=== PATIENT | female | born 1995 | race Caucasian/White ===

== ENCOUNTER → 2020-02-23 17:07 | Outpatient (CLI) | payer OTHER, SELFPAY ==
--- NOTE | 2020-02-23 17:11 | DI.US.S_ITS ---
PROCEDURE: US OB FOLLOW UP INDICATIONS: Follow up Anatomy Face please : not fully visualized OUTSIDE/PRIOR DATING DATA: Last menstrual period (LMP): 09/12/2019. LMP-based estimated date of delivery (LILIANE): 06/17/2020. First dating scan (date and location): 01/25/2020. Estimated date of delivery (LILIANE) from first dating scan: 06/18/2020. TECHNIQUE: Real-time scanning was performed of the fetus, with image documentation. Endovaginal scanning: Not performed COMPARISON: [facility], , US OB DETAILED EVAL, 01/25/2020, 8:06. FINDINGS: A single living intrauterine gestation is present. Presentation: Cephalic Placenta: Placental position is anterior, without previa. Amniotic fluid index: 14.5 cm, normal range is 5-24 cm. heart rate: 136 beats per minute. Maternal cervical canal: 4.1 cm long. Normal lower limit is 2.5 cm. Estimated gestational age from initial scan: 23 weeks, 3 days.. facial profile is visualized. nose and lips are visualized and are within normal limits. IMPRESSION: Single live intrauterine with fetus in cephalic presentation. heart rate is 136 beats per minute. Normal amount of amniotic fluid. Normal cervical length. facial profile/nose and lips are visualized and are within normal limits. Dictated by: Michele Park M.D. on 02/23/2020 at 18:31 Approved by: Michele Park M.D. on 02/23/2020 at 19:07
== END ==
PROVIDERS: PCP Family Medicine; Referring Provider Family Medicine; Visit Provider Family Medicine
DX: Z36.2 Encounter for other antenatal screening follow-up (principal); Z3A.23 23 weeks gestation of pregnancy
CPT/HCPCS: 76816

== ENCOUNTER → 2020-02-26 14:35 | Outpatient (CLI) | payer OTHER, SELFPAY ==
[2020-02-26 16:21] LABS: TSH w/ Reflex to FT4 1.54 uIU/mL (0.47-4.68)
[2020-02-26 16:38] LABS: HIV 1 & 2 Ab/Ag 4th Gen Combo NEGATIVE (NEGATIVE)
== END ==
PROVIDERS: PCP Family Medicine; Referring Provider Family Medicine; Visit Provider Family Medicine
DX: E03.9 Hypothyroidism, unspecified (principal); Z20.6 Contact with and (suspected) exposure to human immunodeficiency virus [HIV]; Z3A.26 26 weeks gestation of pregnancy
CPT/HCPCS: 36415; 84443; 87389

== ENCOUNTER 2020-03-09 15:15 | Outpatient (CLI) | payer OTHER, SELFPAY ==
--- NOTE | 2020-03-09 16:13 | PM.OBTRLD ---
Visit Information Visit Information Date of evaluation: 03/09/20 Primary OB Provider: Elsy Mcmahon On-call OB Provider: Elsy Mcmahon Reason for Evaluation: Yes non-stress test non-stress test reason: other (Bleeding with wiping) Comments/Additional reasons for admission: Patient comes in due to pink discharge with wiping though not bryce blood. She has also been feeling crampy all day. Denies fevers or pain with urination. She has had good movement and denies leaking. Vital Signs Vital Signs: Blood pressure 110/61 heart rate 63 PFSH Medical History Abnormal Pap smear of cervix (Acute ~2019) Allergies (Chronic ~2014) Bacterial vaginosis (Acute) Hypothyroidism (Chronic ~2018) Yeast infection involving the vagina and surrounding area (Acute) Surgical History Anesthesia (Resolved) [place] teeth removed (Resolved ~2018) Family History Father History of amputation Neuropathy Diabetes mellitus Mother Hypothyroidism Diabetes mellitus Hypertension Sister Hypothyroidism Grandfather Congestive heart failure Diabetes mellitus History of heart disease Hyperlipidemia Hypertension Grandmother Arthritis Grandmother No problems noted. Grandfather No problems noted. Social History marital status: number of children: 0 household members: spouse lives independently: Yes caregiver/support person: No housing: apartment education level: high school occupational status: employed ([employer] in [employer], starts at 11am.) current occupational exposures/hazards: Yes Smoking Status: Never smoker second hand exposure: No Type(s) of exercise: walking and weight lifting (Normally competitive weightlifter; Previous provider recommended avoiding exercises with too much core pressure.) frequency: 5-6 times per week Evaluation Evaluation Baseline heart rate: 130 Variability: Moderate (11-25) monitor accelerations: Present monitor decelerations: Absent Category of Tracing: Reactive Diagnosis, Plan/Disposition Final Diagnosis (1) 26 weeks gestation of : Status: Acute Plan/Disposition Plan: 25 year old at 26 weeks gestation with reports of pink discharge at home and cramping for several hours. NST reactive and one contraction during the hour she was on the monitor. UA normal. Patient given reassurance. Follow up if bryce bleeding or contractions, otherwise return to clinic as scheduled. OB Disposition: home
[2020-03-09 16:34] LABS: Appearance Urine UA SL CLOUDY; Bacteria Urine None Seen; Bilirubin Urine UA NEGATIVE (NEGATIVE); Color Urine UA YELLOW; Glucose Urine UA NEGATIVE (Negative); Ketones Urine UA NEGATIVE (NEGATIVE); Leukocyte Esterase Urine UA NEGATIVE (NEGATIVE); Nitrite Urine UA NEGATIVE (Negative); Occult Blood Urine UA NEGATIVE (Negative); Protein Urine UA NEGATIVE (Negative); RBC Urine None Seen (0-5/HPF); Urobilinogen Urine UA 0.2 E.U./dL (0.2)
[2020-03-09 16:49] LABS: pH Urine UA 7.5 (4.5-8.0)
[2020-03-09 16:50] LABS: Amorphous Sediment Urine 3+; Culture Indicated Urine Cult Not Indicated; Squamous Epithelial Cell Urine 0-1 /HPF (0-5/HPF); WBC Urine 0-1/HPF (0-5/HPF)
== END 2020-03-09 17:00 | disposition home or self-care (01) ==
LOC: OB 03-10 14:56
PROVIDERS: PCP Family Medicine; Referring Provider Family Medicine; Visit Provider Family Medicine
DX: O20.9 Hemorrhage in early pregnancy, unspecified (principal); R10.9 Unspecified abdominal pain; Z3A.26 26 weeks gestation of pregnancy
CPT/HCPCS: 59025; 81001; G0378; G0379

== ENCOUNTER 2020-03-12 18:03 | Observation (INO) | payer OTHER, SELFPAY ==
[2020-03-12 18:50] LABS: Appearance Urine UA CLEAR; Bilirubin Urine UA NEGATIVE (NEGATIVE); Color Urine UA YELLOW; Glucose Urine UA NEGATIVE (Negative); Ketones Urine UA NEGATIVE (NEGATIVE); Leukocyte Esterase Urine UA NEGATIVE (NEGATIVE); Nitrite Urine UA NEGATIVE (Negative); Occult Blood Urine UA NEGATIVE (Negative); Protein Urine UA NEGATIVE (Negative); Urobilinogen Urine UA 0.2 E.U./dL (0.2); pH Urine UA 5.5 (4.5-8.0)
[2020-03-12 19:16] LABS: Bacteria Urine Occasional (0-1); Culture Indicated Urine Cult Not Indicated; RBC Urine 0-1/HPF (0-5/HPF); Squamous Epithelial Cell Urine 1-5 /HPF (0-5/HPF); WBC Urine 0-1/HPF (0-5/HPF)
[2020-03-12 19:32] LABS: Add Manual Diff / Slide Review NO; Basophils Absolute Auto 0 /uL (0-100); Basophils Percent Auto 0.6 % (0-2); Eosinophils Absolute Auto 100 /uL (0-450); Hematocrit 34.3 % (36-46); Lymphocytes Absolute Auto 1300 /uL (1100-4500); Lymphocytes Percent Auto 20.2 % (25-40); Mean Corpuscular HGB Conc 34.9 % (30-36); Mean Corpuscular Hemoglobin 32.2 PG (26-34); Mean Corpuscular Volume 92.2 fL (80-100); Monocytes Absolute Auto 400 /uL (0-900); Monocytes Percent Auto 5.6 % (3-14); Neutrophils Absolute Auto 4800 /uL (1500-7000); Neutrophils Percent Auto 72.6 % (50-75); Platelet Count 179 X10^3/uL (150-400); Red Blood Cell Count 3.72 X10^6/uL (4.0-5.2); Red Cell Distribution Width 12.6 % (11.6-14.8); White Blood Cell Count 6.7 X10^3/uL (4.5-11.0)
[2020-03-12 19:47] LABS: Alanine Aminotransferase 14 IU/L (<35); Albumin 3.5 g/dL (3.5-5.0); Albumin Globulin Ratio 1.2 (1.0-2.8); Alkaline Phosphatase 50 U/L (38-126); Aspartate Aminotransferase 29 IU/L (14-36); Bilirubin Total 0.4 mg/dL (0.2-1.3); Bilirubin Unconjugated 0.4 mg/dL (0.0-1.1); Globulin 2.9 g/dL (1.7-4.1); HEMOLYSIS < 15 (0-50); Total Protein 6.4 g/dL (6.3-8.2)
--- NOTE | 2020-03-12 20:01 | PM.OBTRLD ---
Visit Information Visit Information Date of evaluation: 03/12/20 Primary OB Provider: Elsy Mcmahon On-call OB Provider: Janis Whitten Reason for Evaluation: Yes other Comments/Additional reasons for admission: Headache, epigastric pain, rectal bleeding [facility] Medical History (Updated 03/12/20 @ 21:32 by Janis Whitten MD) Abnormal Pap smear of cervix (Acute ~2019) Allergies (Chronic ~2014) Bacterial vaginosis (Acute) Hypothyroidism (Chronic ~2018) Yeast infection involving the vagina and surrounding area (Acute) Surgical History Anesthesia (Resolved) [place] teeth removed (Resolved ~2018) Family History Father History of amputation Neuropathy Diabetes mellitus Mother Hypothyroidism Diabetes mellitus Hypertension Sister Hypothyroidism Grandfather Congestive heart failure Diabetes mellitus History of heart disease Hyperlipidemia Hypertension Grandmother Arthritis Grandmother No problems noted. Grandfather No problems noted. Social History marital status: number of children: 0 household members: spouse lives independently: Yes caregiver/support person: No housing: apartment education level: high school occupational status: employed ([employer] in [place], starts at 11am.) current occupational exposures/hazards: Yes Smoking Status: Never smoker second hand exposure: No Type(s) of exercise: walking and weight lifting (Normally competitive weightlifter; Previous provider recommended avoiding exercises with too much core pressure.) frequency: 5-6 times per week Review of Systems Review of Systems Narrative: Patient complains of a headache mostly on the right side that started earlier this week. She initially would have the pain go from the side of her head across her forehead increasing over the day. She initially did not have pain when she woke up in the morning but now the pain is present when she wakes up and gets worse throughout the day. She tried taking Benadryl last night to get a good night's sleep but actually felt worse today. Patient is complaining of some possible visual changes, dizziness with standing, and now has ringing in her right ear. Patient also complained of right upper quadrant pain and pain in her back/flank. She did have a fairly firm bowel movement with no pain but had bright red bleeding with that bowel movement. No bleeding since. Patient states her right upper quadrant pain is better now. Patient denies any fevers. No nasal congestion. Patient is concerned because her mother had preeclampsia with all of her pregnancies. Exam Vital Signs (past 8 hours): Blood pressure 126/65, pulse 76, temperature 98? Narrative Exam Narrative: Attempt to look in the patient's right ear was somewhat limited due to the wax in the patient's ear but what little I could see of her eardrum did not appear to show signs of infection. She has some tenderness anterior to her ear but not posterior. No tenderness to her sinuses. The patient's abdomen is soft, nontender. Uterus is soft, nontender. Extremities without edema and nontender. Objective Labs Result Diagrams: 03/12/20 19:22 Labs: Laboratory Results - last 24 hr 03/12/20 03/12/20 18:05 19:22 WBC 6.7 RBC 3.72 L Hgb 12.0 Hct 34.3 L MCV 92.2 MCH 32.2 MCHC 34.9 RDW 12.6 Plt Count 179 Neut % (Auto) 72.6 Lymph % (Auto) 20.2 L [place] % (Auto) 5.6 Eos % (Auto) 1.0 L Baso % (Auto) 0.6 Neut # (Auto) 4800 Lymph # (Auto) 1300 [place] # (Auto) 400 Eos # (Auto) 100 Baso # (Auto) 0 Urine Color Yellow Urine Appearance Clear Urine pH 5.5 Ur Specific [place] 1.020 Urine Protein Negative Urine Glucose (UA) Negative Urine Ketones Negative Urine Occult Blood Negative Urine Nitrate Negative Urine Bilirubin Negative Urine Urobilinogen 0.2 Ur Leukocyte Esterase Negative Urine RBC 0-1/hpf Urine WBC 0-1/hpf Ur Squamous Epith Cells 1-5 /hpf Urine Bacteria Occasional (0-1) Ur Culture Indicated? Cult not indicated Evaluation Evaluation Baseline heart rate: 140 Variability: Moderate (11-25) monitor accelerations: Present monitor decelerations: Absent Contraction Frequency (minutes): 0 Category of Tracing: Appropriate for gestational age Laboratory results: Laboratory Tests 03/12/20 03/12/20 18:05 19:22 WBC 6.7 RBC 3.72 L Hgb 12.0 Hct 34.3 L MCV 92.2 MCH 32.2 MCHC 34.9 RDW 12.6 Plt Count 179 Neut % (Auto) 72.6 Lymph % (Auto) 20.2 L [place] % (Auto) 5.6 Eos % (Auto) 1.0 L Baso % (Auto) 0.6 Neut # (Auto) 4800 Lymph # (Auto) 1300 [place] # (Auto) 400 Eos # (Auto) 100 Baso # (Auto) 0 Urine Color Yellow Urine Appearance Clear Urine pH 5.5 Ur Specific [place] 1.020 Urine Protein Negative Urine Glucose (UA) Negative Urine Ketones Negative Urine Occult Blood Negative Urine Nitrate Negative Urine Bilirubin Negative Urine Urobilinogen 0.2 Ur Leukocyte Esterase Negative Urine RBC 0-1/hpf Urine WBC 0-1/hpf Ur Squamous Epith Cells 1-5 /hpf Urine Bacteria Occasional (0-1) Ur Culture Indicated? Cult not indicated Diagnosis, Plan/Disposition Final Diagnosis (1) 26 weeks gestation of : Status: Acute (2) Headache: Status: Acute Plan/Disposition Plan: Patient with headache of unclear etiology but no signs or symptoms of preeclampsia. Patient was given 1 dose of Fiorcet prior to discharge. She is to push fluids. She can take Benadryl at night and Sudafed during the day to see if her symptoms are due to ear/sinus pressure. If her symptoms worsen or change she is to call. Follow up with her Ob Sunday. OB Disposition: home
[2020-03-12] MEDS: BUTALB/APAP/CAFFEINE 50/325/40 TABLET 1 EACH PO (20:10)
== END 2020-03-12 20:30 | disposition home or self-care (01) ==
LOC: LABOR 18:05
PROVIDERS: Admitting Provider Specialist; PCP Family Medicine; Referring Provider Specialist; Visit Provider Specialist
DX: O26.892 Other specified pregnancy related conditions, second trimester (principal); R51.9 Headache, unspecified; R10.13 Epigastric pain; K92.1 Melena; Z3A.26 26 weeks gestation of pregnancy
CPT/HCPCS: 59025; 59050; 80076; 81001; 85025; G0378; G0379

== ENCOUNTER → 2020-03-22 10:00 | Outpatient (CLI) | payer OTHER, SELFPAY ==
[2020-03-22 11:30] LABS: Hematocrit 35.4 % (36-46); Hemoglobin 12.4 g/dL (12.0-16.0)
[2020-03-22 11:47] LABS: GTT (PREG) 1 Hour PP 50gm Dose 87 mg/dL (76-139)
== END ==
PROVIDERS: PCP Family Medicine; Referring Provider Family Medicine; Visit Provider Family Medicine
DX: Z34.90 Encounter for supervision of normal pregnancy, unspecified, unspecified trimester (principal); Z3A.26 26 weeks gestation of pregnancy
CPT/HCPCS: 36415; 82950; 85014; 85018

== ENCOUNTER 2020-04-04 21:57 | Outpatient (CLI) | payer OTHER, SELFPAY | END 2020-04-04 22:50 | disposition home or self-care (01) | LOC: OB 04-05 12:02 | PROVIDERS: PCP Family Medicine; Referring Provider Obstetrics & Gynecology; Visit Provider Obstetrics & Gynecology | DX: O47.03 False labor before 37 completed weeks of gestation, third trimester (principal); N89.8 Other specified noninflammatory disorders of vagina; Z3A.29 29 weeks gestation of pregnancy | CPT/HCPCS: 59025; 84112; G0378; G0379 ==

== ENCOUNTER 2020-04-28 19:16 | Observation (INO) | payer OTHER, SELFPAY ==
[2020-04-28 19:59] LABS: Appearance Urine UA CLEAR; Bilirubin Urine UA NEGATIVE (NEGATIVE); Color Urine UA YELLOW; Glucose Urine UA NEGATIVE (Negative); Ketones Urine UA NEGATIVE (NEGATIVE); Leukocyte Esterase Urine UA NEGATIVE (NEGATIVE); Nitrite Urine UA NEGATIVE (Negative); Occult Blood Urine UA NEGATIVE (Negative); Protein Urine UA NEGATIVE (Negative); Specific Gravity Urine UA 1.025 (1.000-1.035); Urobilinogen Urine UA 0.2 E.U./dL (0.2)
[2020-04-28] MEDS: NIFEdipine 10 MG CAPSULE PO ×4 (19:59→21:07)
[2020-04-28 20:00] LABS: pH Urine UA 5.5 (4.5-8.0)
--- NOTE | 2020-04-28 20:27 | PM.OBTRLD ---
Visit Information Visit Information Date of evaluation: 04/28/20 Primary OB Provider: Janis Whitten Reason for Evaluation: Yes pre-term labor Vital Signs Vital Signs: BP 130/58, P 75 ,T 36.3 [facility] Medical History (Updated 04/30/20 @ 20:26 by Ananya Mahajan MD) Abnormal Pap smear of cervix (~2019) Allergies (~2014) Bacterial vaginosis Hypothyroidism (~2018) Yeast infection involving the vagina and surrounding area Surgical History Anesthesia [place] teeth removed (~2018) Family History Father History of amputation Neuropathy Diabetes mellitus Mother Hypothyroidism Diabetes mellitus Hypertension Sister Hypothyroidism Grandfather Congestive heart failure Diabetes mellitus History of heart disease Hyperlipidemia Hypertension Grandmother Arthritis Grandmother No problems noted. Grandfather No problems noted. Social History marital status: number of children: 0 household members: spouse lives independently: Yes caregiver/support person: No housing: apartment education level: high school occupational status: employed ([employer] in [employer], starts at 11am.) current occupational exposures/hazards: Yes Smoking Status: Never smoker second hand exposure: No Type(s) of exercise: walking and weight lifting (Normally competitive weightlifter; Previous provider recommended avoiding exercises with too much core pressure.) frequency: 5-6 times per week Review of Systems Review of Systems Narrative: Patient complains of period like cramps all day that did not respond to resting and drinking fluids. Sometimes the pain is much more intense than cramps. Those increased pain are not regular. ROS: Yes All systems reviewed with the patient and are negative except as otherwise documented Objective Labs Labs: Laboratory Results - last 24 hr 04/28/20 19:30 Urine Color Yellow Urine Appearance Clear Urine pH 5.5 Ur Specific [place] 1.025 Urine Protein Negative Urine Glucose (UA) Negative Urine Ketones Negative Urine Occult Blood Negative Urine Nitrate Negative Urine Bilirubin Negative Urine Urobilinogen 0.2 Ur Leukocyte Esterase Negative Evaluation Evaluation Baseline heart rate: 125 Variability: Moderate (11-25) monitor accelerations: Present monitor decelerations: Absent Laboratory results: Laboratory Tests 11/25/20 19:30 Urine Color Yellow Urine Appearance Clear Urine pH 5.5 Ur Specific [place] 1.025 Urine Protein Negative Urine Glucose (UA) Negative Urine Ketones Negative Urine Occult Blood Negative Urine Nitrate Negative Urine Bilirubin Negative Urine Urobilinogen 0.2 Ur Leukocyte Esterase Negative Comments: Patient received nifedipine 3 doses in her cramps went away. There were never significant contractions on the monitor or by palpation Diagnosis, Plan/Disposition Final Diagnosis (1) Pelvic cramping: Status: Acute Plan/Disposition Plan: Patient with cramping that since has resolved after nifedipine. Patient was discharged home to push fluids and rest and follow up at her normal OB appointment. OB Disposition: home
== END 2020-04-28 21:30 | disposition home or self-care (01) ==
LOC: LABOR 19:17
PROVIDERS: Specialist; Admitting Provider Family Medicine; PCP Family Medicine; Referring Provider Family Medicine; Visit Provider Family Medicine
DX: O47.03 False labor before 37 completed weeks of gestation, third trimester (principal); Z3A.33 33 weeks gestation of pregnancy
CPT/HCPCS: 59025; 59050; 81003; G0378; G0379

== ENCOUNTER 2020-04-30 14:20 | Outpatient (CLI) | payer OTHER, SELFPAY ==
[2020-04-30 14:38] LABS: Appearance Urine UA CLEAR; Bilirubin Urine UA NEGATIVE (NEGATIVE); Color Urine UA YELLOW; Glucose Urine UA NEGATIVE (Negative); Ketones Urine UA NEGATIVE (NEGATIVE); Leukocyte Esterase Urine UA NEGATIVE (NEGATIVE); Nitrite Urine UA NEGATIVE (Negative); Occult Blood Urine UA NEGATIVE (Negative); Protein Urine UA NEGATIVE (Negative); Urobilinogen Urine UA 0.2 E.U./dL (0.2)
[2020-04-30 14:40] LABS: pH Urine UA 6.5 (4.5-8.0)
--- NOTE | 2020-04-30 15:29 | PM.OBTRLD ---
Visit Information Visit Information Date of evaluation: 04/30/20 Primary OB Provider: Elsy Mcmahon On-call OB Provider: Ananya Mahajan Reason for Evaluation: Yes rule out labor Comments/Additional reasons for admission: 25yo at 33w3d presented with regular cramping throughout the day. She was evaluated on 04/28 for the same, and discharged home without evidence of labor. She feels the cramping has gotten stronger, although she does not feel they are contractions. No vaginal bleeding or LOF. She is feeling baby move regularly. [facility] Medical History (Updated 04/30/20 @ 20:26 by Ananya Mahajan MD) Abnormal Pap smear of cervix (~2019) Allergies (~2014) Bacterial vaginosis Hypothyroidism (~2018) Yeast infection involving the vagina and surrounding area Surgical History Anesthesia [place] teeth removed (~2018) Family History Father History of amputation Neuropathy Diabetes mellitus Mother Hypothyroidism Diabetes mellitus Hypertension Sister Hypothyroidism Grandfather Congestive heart failure Diabetes mellitus History of heart disease Hyperlipidemia Hypertension Grandmother Arthritis Grandmother No problems noted. Grandfather No problems noted. Social History marital status: number of children: 0 household members: spouse lives independently: Yes caregiver/support person: No housing: apartment education level: high school occupational status: employed ([employer] in [place], starts at 11am.) current occupational exposures/hazards: Yes Smoking Status: Never smoker second hand exposure: No Type(s) of exercise: walking and weight lifting (Normally competitive weightlifter; Previous provider recommended avoiding exercises with too much core pressure.) frequency: 5-6 times per week Objective Labs Labs: Laboratory Results - last 24 hr 04/30/20 14:30 Urine Color Yellow Urine Appearance Clear Urine pH 6.5 Ur Specific [place] 1.020 Urine Protein Negative Urine Glucose (UA) Negative Urine Ketones Negative Urine Occult Blood Negative Urine Nitrate Negative Urine Bilirubin Negative Urine Urobilinogen 0.2 Ur Leukocyte Esterase Negative Evaluation Evaluation Baseline heart rate: 125 Variability: Moderate (11-25) monitor accelerations: Present monitor decelerations: Absent Category of Tracing: Reactive Laboratory results: Laboratory Tests 04/30/20 14:30 Urine Color Yellow Urine Appearance Clear Urine pH 6.5 Ur Specific [place] 1.020 Urine Protein Negative Urine Glucose (UA) Negative Urine Ketones Negative Urine Occult Blood Negative Urine Nitrate Negative Urine Bilirubin Negative Urine Urobilinogen 0.2 Ur Leukocyte Esterase Negative Diagnosis, Plan/Disposition Final Diagnosis (1) Pelvic cramping: Status: Acute (2) Bacterial vaginosis: Status: Acute Plan/Disposition Plan: 25yo at 33w3d who presented with regular pelvic cramping. No contractions with monitoring. NST reactive. Wet prep consistent with BV - will tx with Metronidazole today. Stable for d/c home. OB Disposition: home
== END 2020-04-30 15:25 | disposition home or self-care (01) ==
LOC: LABOR 14:29 → OB 05-03 07:42
PROVIDERS: PCP Family Medicine; Referring Provider Family Medicine; Visit Provider Family Medicine
DX: O47.03 False labor before 37 completed weeks of gestation, third trimester (principal); O23.593 Infection of other part of genital tract in pregnancy, third trimester; Z3A.33 33 weeks gestation of pregnancy
CPT/HCPCS: 59025; 81003; 87070; 87077; 87147; 87205; 87210; G0378; G0379

== ENCOUNTER 2020-05-08 18:15 | Outpatient (CLI) | payer OTHER, SELFPAY | END 2020-05-08 19:04 | disposition home or self-care (01) | LOC: OB 05-10 10:36 | PROVIDERS: PCP Family Medicine; Referring Provider Obstetrics & Gynecology; Visit Provider Obstetrics & Gynecology | DX: O47.03 False labor before 37 completed weeks of gestation, third trimester (principal); Z3A.34 34 weeks gestation of pregnancy | CPT/HCPCS: 59025; G0378; G0379 ==

== ENCOUNTER 2020-05-11 10:52 | Outpatient (CLI) | payer OTHER, SELFPAY ==
[2020-05-11 12:20] LABS: Amorphous Sediment Urine 1+; RBC Urine None Seen (0-5/HPF); Squamous Epithelial Cell Urine 1-5 /HPF (0-5/HPF); WBC Urine 0-1/HPF (0-5/HPF)
[2020-05-11 12:21] LABS: Bacteria Urine Occasional (0-1); Culture Indicated Urine Cult Not Indicated
--- NOTE | 2020-05-11 12:28 | PM.OBTRLD ---
Visit Information Visit Information Date of evaluation: 05/11/20 Primary OB Provider: Elys Mcmahon Reason for Evaluation: Yes rule out labor Comments/Additional reasons for admission: Patient has been feeling pressure since last night and reports contractions lasting up to 45 seconds every 15 minutes since this morning. She passed a very tiny clot yesterday and has not had further bleeding. Good movement, no loss of fluid. Vital Signs Vital Signs: Blood pressure 118/67 heart rate 96 PFSH Medical History (Updated 05/11/20 @ 12:30 by Elsy Mcmahon DO) Abnormal Pap smear of cervix (~2019) Allergies (~2014) Bacterial vaginosis Hypothyroidism (~2018) Yeast infection involving the vagina and surrounding area Surgical History Anesthesia [place] teeth removed (~2018) Family History Father History of amputation Neuropathy Diabetes mellitus Mother Hypothyroidism Diabetes mellitus Hypertension Sister Hypothyroidism Grandfather Congestive heart failure Diabetes mellitus History of heart disease Hyperlipidemia Hypertension Grandmother Arthritis Grandmother No problems noted. Grandfather No problems noted. Social History marital status: number of children: 0 household members: spouse lives independently: Yes caregiver/support person: No housing: apartment education level: high school occupational status: employed ([employer] in [place], starts at 11am.) current occupational exposures/hazards: Yes Smoking Status: Never smoker second hand exposure: No Type(s) of exercise: walking and weight lifting (Normally competitive weightlifter; Previous provider recommended avoiding exercises with too much core pressure.) frequency: 5-6 times per week Objective Labs Labs: Laboratory Results - last 24 hr 05/11/20 11:20 Urine RBC None seen Urine WBC 0-1/hpf Ur Squamous Epith Cells 1-5 /hpf Amorphous Sediment 1+ Urine Bacteria Occasional (0-1) Ur Culture Indicated? Cult not indicated Evaluation Evaluation Baseline heart rate: 120 Variability: Moderate (11-25) monitor accelerations: Present monitor decelerations: Variable (One isolated variable) Category of Tracing: Reactive Laboratory results: Laboratory Tests 05/11/20 11:20 Urine RBC None seen Urine WBC 0-1/hpf Ur Squamous Epith Cells 1-5 /hpf Amorphous Sediment 1+ Urine Bacteria Occasional (0-1) Ur Culture Indicated? Cult not indicated Diagnosis, Plan/Disposition Final Diagnosis (1) 35 weeks gestation of : Status: Acute Plan/Disposition Plan: 25-year-old at 35 weeks gestation. No contractions noted on the monitor though some uterine irritability. NST reactive. Will discharge home with labor precautions. Follow-up in clinic as scheduled. OB Disposition: home
== END 2020-05-11 12:32 | disposition home or self-care (01) ==
LOC: LABOR 12:15 → OB 05-12 16:48
PROVIDERS: PCP Family Medicine; Referring Provider Family Medicine; Visit Provider Family Medicine
DX: O47.03 False labor before 37 completed weeks of gestation, third trimester (principal); Z3A.35 35 weeks gestation of pregnancy
CPT/HCPCS: 59025; 59050; 81015; G0378; G0379

== ENCOUNTER → 2020-05-12 09:14 | Outpatient (CLI) | payer OTHER, SELFPAY ==
--- NOTE | 2020-05-12 09:16 | DI.US.S_ITS ---
PROCEDURE: US OB LIMITED INDICATIONS: GROWTH. SMALL FOR GESTATIONAL AGE. OUTSIDE/PRIOR DATING DATA: Last menstrual period (LMP): 09/07/2019. LMP-based estimated date of delivery (LILIANE): 06/15/2020 . First dating scan (date and location): 11/11/2019 . Estimated date of delivery (LILIANE) from first dating scan: 06/16/2020 . TECHNIQUE: Real-time scanning was performed of the fetus, with image documentation and biometric measurements. Endovaginal scanning: No COMPARISON: None. FINDINGS: General: A single living intrauterine gestation is present. Presentation: Vertex. Placenta: Placental position is anterior , without previa. Amniotic fluid index: 14.5 cm, normal range is 5-24 cm. heart rate: 162 beats per minute. Maternal cervical canal: 3.9 cm long. Normal lower limit is 2.5 cm. biometrics: Biparietal diameter: 34 weeks 4 days Head circumference: 34 weeks 4 days Abdominal circumference: 34 weeks 3 days Femur length: 34 weeks 3 days Estimated gestational age from initial scan: 35 weeks Composite gestational age from present scan: 34 weeks 4 days Estimated weight and percentile: 2426 g; 33 centile Measurement variability for biometric dating: +/- 7 days from 14 weeks to 15 weeks 6 days gestation, +/- 10 days from 16 weeks to 21 weeks 6 days gestation, +/- 2 weeks from 22 weeks to 27 weeks 6 days gestation, +/- 3 weeks for 28 weeks gestation or later. weight reference: 4500 g or EFW >90/95% is considered macrosomia or large for gestational age. EFW <10% is small for gestational age. EFW 5% or less is considered intra-uterine growth restriction. Other: Not applicable. IMPRESSION: 1. Single living IUP redemonstrated and interval growth is normal. Dictated by: Poncho Burns [facility] Interpreted: Miriam Alford MD on 05/12/2020 at 12:08 Approved by: Miriam Alford M.D. on 05/12/2020 at 16:54
[2020-05-12 10:40] LABS: TSH w/ Reflex to FT4 1.28 uIU/mL (0.47-4.68)
[2020-05-13 16:59] LABS: HIV 1 & 2 Ab/Ag 4th Gen Combo NEGATIVE (NEGATIVE)
== END ==
PROVIDERS: PCP Family Medicine; Referring Provider Family Medicine; Visit Provider Family Medicine
DX: O36.5930 Maternal care for other known or suspected poor fetal growth, third trimester, not applicable or unspecified (principal); O99.283 Endocrine, nutritional and metabolic diseases complicating pregnancy, third trimester; E03.9 Hypothyroidism, unspecified; Z20.6 Contact with and (suspected) exposure to human immunodeficiency virus [HIV]; Z3A.34 34 weeks gestation of pregnancy
CPT/HCPCS: 36415; 76815; 84443; 87389

== ENCOUNTER → 2020-05-21 14:27 | Outpatient (CLI) | payer OTHER, SELFPAY ==
[2020-05-22 15:01] LABS: Strep Grp B PCR POS for Grp B Strep
== END ==
PROVIDERS: PCP Family Medicine; Visit Provider Family Medicine
DX: Z34.03 Encounter for supervision of normal first pregnancy, third trimester (principal); N76.0 Acute vaginitis; Z3A.36 36 weeks gestation of pregnancy
CPT/HCPCS: 87081; 87186; 87210; 87653

== ENCOUNTER 2020-06-04 19:08 | Observation (INO) | payer OTHER, SELFPAY | END 2020-06-04 21:35 | disposition home or self-care (01) | LOC: LABOR 19:10 | PROVIDERS: Admitting Provider Obstetrics & Gynecology; PCP Family Medicine; Referring Provider Obstetrics & Gynecology; Visit Provider Obstetrics & Gynecology | DX: O99.283 Endocrine, nutritional and metabolic diseases complicating pregnancy, third trimester (principal); Z3A.38 38 weeks gestation of pregnancy | CPT/HCPCS: 59025; G0378; G0379 ==

== ENCOUNTER 2020-06-06 20:02 | Outpatient (CLI) | payer OTHER, SELFPAY ==
--- NOTE | 2020-06-07 07:53 | PM.OBTRLD ---
Visit Information Visit Information Date of evaluation: 06/06/20 Primary OB Provider: Elsy Mcmahon On-call OB Provider: Janis Whitten Reason for Evaluation: Yes non-stress test non-stress test reason: decreased movement Vital Signs Vital Signs: Blood pressure 132/84, pulse 68, temperature 36.2? [facility] Medical History (Updated 06/07/20 @ 07:56 by Janis Whitten MD) Abnormal Pap smear of cervix (~2019) Allergies (~2014) Bacterial vaginosis Hypothyroidism (~2018) Yeast infection involving the vagina and surrounding area Surgical History Anesthesia [place] teeth removed (~2018) Family History Father History of amputation Neuropathy Diabetes mellitus Mother Hypothyroidism Diabetes mellitus Hypertension Sister Hypothyroidism Grandfather Congestive heart failure Diabetes mellitus History of heart disease Hyperlipidemia Hypertension Grandmother Arthritis Grandmother No problems noted. Grandfather No problems noted. Social History marital status: number of children: 0 household members: spouse lives independently: Yes caregiver/support person: No housing: apartment education level: high school occupational status: employed ([employer] in [place], starts at 11am.) current occupational exposures/hazards: Yes Smoking Status: Never smoker second hand exposure: No Type(s) of exercise: walking and weight lifting (Normally competitive weightlifter; Previous provider recommended avoiding exercises with too much core pressure.) frequency: 5-6 times per week Review of Systems Review of Systems Narrative: Patient complains of contractions however they stop when she arrived to the hospital. She was concerned about decreased movement and possible rupture membranes. Evaluation Evaluation Baseline heart rate: 130 Variability: Moderate (11-25) monitor accelerations: Present monitor decelerations: Absent Contraction Frequency (minutes): 0 Category of Tracing: Reactive Status: Category l Cervical dilation (cm): 0 Cervical effacement (%): 75 station: -2 Non-invasive Membranes Rupture Test: negative Diagnosis, Plan/Disposition Final Diagnosis (1) False labor: Status: Acute (2) 38 weeks gestation of : Status: Acute Plan/Disposition Plan: Patient not in labor and has not broken her bag of water with reactive nonstress test OB Disposition: home
== END 2020-06-06 21:15 | disposition home or self-care (01) ==
LOC: LABOR 20:14 → OB 06-07 15:16
PROVIDERS: PCP Family Medicine; Referring Provider Specialist; Visit Provider Specialist
DX: O36.8130 Decreased fetal movements, third trimester, not applicable or unspecified (principal); Z3A.38 38 weeks gestation of pregnancy
CPT/HCPCS: 59025; 59050; 84112; G0378; G0379

== ENCOUNTER 2020-06-09 18:19 | Observation (INO) | payer OTHER, SELFPAY ==
[2020-06-09 19:31] LABS: COVID19 -Nasal RAPID Negative (Negative)
[2020-06-09] MEDS: DINOPROSTONE VAG (CERVIDIL) 10 MG VAG (20:36)
[2020-06-09 22:40] LABS: Add Manual Diff / Slide Review NO; Basophils Absolute Auto 0 /uL (0-100); Basophils Percent Auto 0.4 % (0-2); Eosinophils Absolute Auto 100 /uL (0-450); Eosinophils Percent Auto 0.7 % (2-4); Hematocrit 35.6 % (36-46); Hemoglobin 12.3 g/dL (12.0-16.0); Lymphocytes Absolute Auto 1600 /uL (1100-4500); Lymphocytes Percent Auto 20.2 % (25-40); Mean Corpuscular HGB Conc 34.6 % (30-36); Mean Corpuscular Hemoglobin 31.6 PG (26-34); Mean Corpuscular Volume 91.5 fL (80-100); Monocytes Absolute Auto 600 /uL (0-900); Monocytes Percent Auto 7.9 % (3-14); Neutrophils Absolute Auto 5600 /uL (1500-7000); Neutrophils Percent Auto 70.8 % (50-75); Platelet Count 200 X10^3/uL (150-400); Red Blood Cell Count 3.89 X10^6/uL (4.0-5.2); Red Cell Distribution Width 12.7 % (11.6-14.8); White Blood Cell Count 7.9 X10^3/uL (4.5-11.0)
[2020-06-09] MEDS: ZOLPIDEM 5 MG TABLET PO (23:24)
[2020-06-09 23:35] LABS: HIV 1 & 2 Ab/Ag 4th Gen Combo NEGATIVE (NEGATIVE)
[2020-06-09 23:45] VITALS: BP 113/60
--- NOTE | 2020-06-10 07:09 | PM.OBHP.1 ---
OB HPI Date/Time Date of admission: 06/09/20 Date Patient Seen: 06/10/20 Time Patient Seen: 08:10 History of Present Condition Chief complaint: eval of labor : 1 Para: 0 Estimated Date of Delivery: 06/15/20 Estimated Gestational Age (weeks): 39w2d Narrative: Graciela Canas is a 25 year old at 39 weeks and 2 days here for elective induction due to patient moving 06/30/20 with the [employer]. Patient transferred care at [address] weeks [address] [facility]. complicated by well-controlled hypothyroidism and HIV in her . She was tested each trimester this for HIV and negative and saw [facility] as well. has had an undetectable viral load for 6 years. She was treated several times for BV this . Lastly her pap at the beginning of the was ASCUS with +HPV. Indications Indication for induction OB: other (Patient moving) History of Present care: good care, initiated at week # (10), number of visits (12) and pounds weight gain (55) Dating criteria: LMP confirmed by 1st trimester US Ultrasounds: normal mid trimester US Obstetrical complications: none Medical complications: none Preadmission Labs Blood type: AB (+) positive -: Antibody screen: negative, GBS status: positive, HBsAG: negative, HIV: negative and RPR/VDLR: negative -: Chlamydia screen: not detected and Gonorrhea screen: not detected -: Rubella: equivocal HCT: 35.6 PAP: Abnormal (ASCUS +HPV) Urine: Negative 1 hr GTT: 87 Evaluation Evaluation Baseline heart rate: 130 Variability: Moderate (11-25) monitor accelerations: Present monitor decelerations: Absent Uterine Contraction Intensity: Mild Status: Category l Cervical dilation (cm): 1 Cervical effacement (%): 75 station: -2 Laboratory results: Laboratory Tests 06/09/20 06/09/20 06/09/20 19:11 22:25 22:25 WBC 7.9 RBC 3.89 L Hgb 12.3 Hct 35.6 L MCV 91.5 MCH 31.6 MCHC 34.6 RDW 12.7 Plt Count 200 Neut % (Auto) 70.8 Lymph % (Auto) 20.2 L Morton % (Auto) 7.9 Eos % (Auto) 0.7 L Baso % (Auto) 0.4 Neut # (Auto) 5600 Lymph # (Auto) 1600 [place] # (Auto) 600 Eos # (Auto) 100 Baso # (Auto) 0 SARS-CoV-2 (PCR) Negative HIV 1&2 Ab/P24 Ag 4thGn Blood Type AB Positive Antibody Screen Negative 06/09/20 22:25 WBC RBC Hgb Hct MCV MCH MCHC RDW Plt Count Neut % (Auto) Lymph % (Auto) Morton % (Auto) Eos % (Auto) Baso % (Auto) Neut # (Auto) Lymph # (Auto) [place] # (Auto) Eos # (Auto) Baso # (Auto) SARS-CoV-2 (PCR) HIV 1&2 Ab/P24 Ag 4thGn Negative Blood Type Antibody Screen [facility] Medical History Abnormal Pap smear of cervix (~2019) Allergies (~2014) Bacterial vaginosis Hypothyroidism (~2018) Yeast infection involving the vagina and surrounding area Surgical History Anesthesia [place] teeth removed (~2018) Family History Father History of amputation Neuropathy Diabetes mellitus Mother Hypothyroidism Diabetes mellitus Hypertension Sister Hypothyroidism Grandfather Congestive heart failure Diabetes mellitus History of heart disease Hyperlipidemia Hypertension Grandmother Arthritis Grandmother No problems noted. Grandfather No problems noted. 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.) current occupational exposures/hazards: Yes Smoking Status: Never smoker second hand exposure: No Type(s) of exercise: walking and weight lifting (Normally competitive weightlifter; Previous provider recommended avoiding exercises with too much core pressure.) frequency: 5-6 times per week Meds Home Medications and Allergies Home Medications Medication Instructions Recorded Confirmed Type cetirizine 10 mg tablet 10 mg PO DAILY 02/16/20 06/09/20 History levothyroxine 25 mcg capsule 25 mcg PO DAILY 02/16/20 06/09/20 History prenat.vits,byron,tld-[id number] 1 tab PO DAILY 02/16/20 06/09/20 History Allergies Allergy/AdvReac Type Severity Reaction Status Date / Time amoxicillin Allergy Intermediate Rash Verified 06/09/20 19:17 Sulfa (Sulfonamide Allergy Intermediate Rash Verified 06/09/20 19:17 Antibiotics) Review of Systems Review of Systems ROS: Yes All systems reviewed with the patient and are negative except as otherwise documented Exam Vital Signs (past 8 hours): - 06/09/20 23:45 Blood Pressure 113/60 T 36.1 BP 135/78 P90 Const General: healthy appearing and comfortable HENMT Head: normal to inspection Ears: hearing grossly normal bilaterally Nose: external nose normal Face and sinus: normal facial exam Mouth: oral mucosae normal Eyes General: appearance normal, both eyes and all related structures Neck Neck: normal visual inspection Resp Effort & Inspection: normal respiratory effort Auscultation: clear to auscultation bilaterally Cardio Rate: regular rate Rhythm: regular rhythm Heart Sounds: no murmurs GI Other: Gravid External Female Exam: normal external appearance Manual OB Exam: dilated 1, effaced 75% and station -2 Presentation: vertex Estimated Weight (lbs): 6 Back/Spine/Pelvis Back: normal to inspection Skin General: no rashes or lesions noted Extrem General: normal to inspection and no pedal edema Objective Labs Result Diagrams: 06/09/20 22:25 Labs: Laboratory Results - last 24 hr 06/09/20 06/09/20 06/09/20 19:11 22:25 22:25 WBC 7.9 RBC 3.89 L Hgb 12.3 Hct 35.6 L MCV 91.5 MCH 31.6 MCHC 34.6 RDW 12.7 Plt Count 200 Neut % (Auto) 70.8 Lymph % (Auto) 20.2 L Morton % (Auto) 7.9 Eos % (Auto) 0.7 L Baso % (Auto) 0.4 Neut # (Auto) 5600 Lymph # (Auto) 1600 [place] # (Auto) 600 Eos # (Auto) 100 Baso # (Auto) 0 SARS-CoV-2 (PCR) Negative HIV 1&2 Ab/P24 Ag 4thGn Blood Type AB Positive Antibody Screen Negative 06/09/20 22:25 WBC RBC Hgb Hct MCV MCH MCHC RDW Plt Count Neut % (Auto) Lymph % (Auto) Morton % (Auto) Eos % (Auto) Baso % (Auto) Neut # (Auto) Lymph # (Auto) [place] # (Auto) Eos # (Auto) Baso # (Auto) SARS-CoV-2 (PCR) HIV 1&2 Ab/P24 Ag 4thGn Negative Blood Type Antibody Screen Assessment and Plan Assessment and Plan Assessment and Plan narrative: Patient is a 25 year old at 39 weeks and 2 days gestation here for elective induction due to patient moving at the end of the month. She has well-controlled hypothyroidism and was seen by MFM due to HIV in her . Patient was negative for HIV each trimester and was negative again on admission. Her has had an undetectable viral load for six years. She received Cervidil overnight for cervical ripening. Hoang score this morning is 7. COVID negative. Will proceed with pitocin per protocol. Needs GBS prophylaxis, will give cefazolin due to mild PCN allergy (rash only as a young child).
[2020-06-10 08:46] LABS: Add Manual Diff / Slide Review NO; Basophils Absolute Auto 0 /uL (0-100); Basophils Percent Auto 0.4 % (0-2); Eosinophils Absolute Auto 0 /uL (0-450); Eosinophils Percent Auto 0.6 % (2-4); Hematocrit 34.4 % (36-46); Hemoglobin 12.1 g/dL (12.0-16.0); Lymphocytes Absolute Auto 1600 /uL (1100-4500); Lymphocytes Percent Auto 21.9 % (25-40); Mean Corpuscular HGB Conc 35.3 % (30-36); Mean Corpuscular Hemoglobin 32.1 PG (26-34); Mean Corpuscular Volume 90.9 fL (80-100); Monocytes Absolute Auto 400 /uL (0-900); Monocytes Percent Auto 6.3 % (3-14); Neutrophils Absolute Auto 5000 /uL (1500-7000); Neutrophils Percent Auto 70.8 % (50-75); Platelet Count 178 X10^3/uL (150-400); Red Blood Cell Count 3.78 X10^6/uL (4.0-5.2); Red Cell Distribution Width 12.8 % (11.6-14.8); White Blood Cell Count 7.1 X10^3/uL (4.5-11.0)
[2020-06-10] MEDS: LACTATED RINGERS 1,000 ML 100 ML IV (09:05)
[2020-06-10] MEDS: OXYTOCIN PREMIX 30 UNIT/500 ML PLAST..BAG IV (09:06)
[2020-06-10] MEDS: CEFAZOLIN 2 GM/100 ML FROZ.PIGGY IV (10:30)
--- NOTE | 2020-06-10 16:57 | PM.OBDS.1 ---
Discharge Providers Provider Date of admission: 06/09/20 18:19 Discharge Date: 06/10/20 Primary care physician: Elsy Mcmahon DO Discharge provider: Elsy Mcmahon DO Summary Hospital Course Date Patient Seen: 06/10/20 Time Patient Seen: 17:11 Hospital Course: Patient is a 25-year-old at 39 weeks and 2 days here for elective induction due [place]. She received Cervidil overnight followed by Pitocin all day. Patient has been stefan regularly every 2-3 minutes however has not made significant cervical change. heart tones have been category 1 throughout the day today. We discussed options including repeat cervical ripening tonight versus going home for a few days then returning for cervical ripening. She would like to discharge home. She will come back the night of 06/14/20 for Cytotec or return sooner if in labor or rupture of membranes occurs. Discharge Diagnosis (1) 39 weeks gestation of : Status: Acute (2) Hypothyroidism: Status: Chronic Time Spent with Patient Time attestation: Total time spent providing and/or coordinating discharge services: Time spent: Less than 30 minutes Objective Labs Result Diagrams: 06/10/20 08:40 Labs: Laboratory Results - last 24 hr 06/09/20 06/09/20 06/09/20 19:11 22:25 22:25 WBC 7.9 RBC 3.89 L Hgb 12.3 Hct 35.6 L MCV 91.5 MCH 31.6 MCHC 34.6 RDW 12.7 Plt Count 200 Neut % (Auto) 70.8 Lymph % (Auto) 20.2 L Williams % (Auto) 7.9 Eos % (Auto) 0.7 L Baso % (Auto) 0.4 Neut # (Auto) 5600 Lymph # (Auto) 1600 [place] # (Auto) 600 Eos # (Auto) 100 Baso # (Auto) 0 SARS-CoV-2 (PCR) Negative HIV 1&2 Ab/P24 Ag 4thGn Blood Type AB Positive Antibody Screen Negative 06/09/20 06/10/20 22:25 08:40 WBC 7.1 RBC 3.78 L Hgb 12.1 Hct 34.4 L MCV 90.9 MCH 32.1 MCHC 35.3 RDW 12.8 Plt Count 178 Neut % (Auto) 70.8 Lymph % (Auto) 21.9 L Williams % (Auto) 6.3 Eos % (Auto) 0.6 L Baso % (Auto) 0.4 Neut # (Auto) 5000 Lymph # (Auto) 1600 [place] # (Auto) 400 Eos # (Auto) 0 Baso # (Auto) 0 SARS-CoV-2 (PCR) HIV 1&2 Ab/P24 Ag 4thGn Negative Blood Type Antibody Screen Exam Vital Signs (past 8 hours): Temperature 36.2? blood pressure 113/59 heart rate 75 Narrative Exam Narrative: heart rate 125 with accelerations and no decelerations, moderate variability General: Patient appears comfortable resting in bed SVE: 1.5/75%/-2 Discharge Plan Discharge Plan Patient Disposition: Home Discharge orders & Medications Prescriptions: Continued levothyroxine 25 mcg capsule 25 mcg PO DAILY RF: 0 cetirizine [Zyrtec] 10 mg tablet 10 mg PO DAILY RF: 0 prenat.vits,byron,[id number] Tablet 1 tab PO DAILY RF: 0 Follow up/Referrals: Elsy Mcmahon DO [Primary Care Provider] - Visit Report/Discharge Packet Visit Report Forms: Patient Portal/API, Stroke Signs & Symptoms Discharge Data Primary Care Provider: Elsy Mcmahon Attending Provider: Elsy Mcmahon Admit Date/Time: 06/09/20 18:19
== END 2020-06-10 17:30 | disposition home or self-care (01) ==
PROVIDERS: Admitting Provider Family Medicine; PCP Family Medicine; Referring Provider Family Medicine; Visit Provider Family Medicine
DX: O99.820 Streptococcus B carrier state complicating pregnancy (principal); Z3A.39 39 weeks gestation of pregnancy; O99.283 Endocrine, nutritional and metabolic diseases complicating pregnancy, third trimester; Z20.822 Contact with and (suspected) exposure to COVID-19
CPT/HCPCS: 36415; 59025; 59050; 59200; 85025; 86850; 86900; 86901; 87389; 87635; 96360; C9803; G0378; G0379; J0690; J2590

== ENCOUNTER 2020-06-13 09:37 | Observation (INO) | payer OTHER, SELFPAY ==
--- NOTE | 2020-06-13 11:19 | P.TNLD_ITS ---
Visit Information Visit Information Date of evaluation: 06/13/20 Primary OB Provider: Elsy Mcmahon On-call OB Provider: Elsy Mcmahon Reason for Evaluation: Yes rule out labor Vital Signs Vital Signs: T 36.3 BP 128/72 HR 80 PFSH Medical History (Updated 06/10/20 @ 17:11 by Elsy Mcmahon DO) Abnormal Pap smear of cervix (~2019) Allergies (~2014) Bacterial vaginosis Hypothyroidism (~2018) Yeast infection involving the vagina and surrounding area Surgical History Anesthesia [place] teeth removed (~2018) Family History Father History of amputation Neuropathy Diabetes mellitus Mother Hypothyroidism Diabetes mellitus Hypertension Sister Hypothyroidism Grandfather Congestive heart failure Diabetes mellitus History of heart disease Hyperlipidemia Hypertension Grandmother Arthritis Grandmother No problems noted. Grandfather No problems noted. Social History marital status: number of children: 0 household members: spouse lives independently: Yes caregiver/support person: No housing: apartment education level: high school occupational status: employed ([employer] in [employer], starts at 11am.) current occupational exposures/hazards: Yes Smoking Status: Never smoker second hand exposure: No Type(s) of exercise: walking and weight lifting (Normally competitive weightlifter; Previous provider recommended avoiding exercises with too much core pressure.) frequency: 5-6 times per week Evaluation Evaluation Baseline heart rate: 130 Variability: Average (6-10) monitor accelerations: Present monitor decelerations: Absent Contraction Frequency (minutes): 8 Uterine Contraction Intensity: Mild Category of Tracing: Reactive Cervical dilation (cm): 1 Cervical effacement (%): 75 station: -2 Diagnosis, Plan/Disposition Final Diagnosis (1) 39 weeks gestation of : Status: Acute Plan/Disposition Plan: 25 year old at 39 weeks, not in labor and SVE unchanged. Reactive NST. Return for increasing contractions or ROM, otherwise scheduled for cytotec tomorrow night. OB Disposition: home
== END 2020-06-13 10:50 | disposition home or self-care (01) ==
PROVIDERS: Admitting Provider Family Medicine; PCP Family Medicine; Referring Provider Family Medicine; Visit Provider Family Medicine
DX: O99.283 Endocrine, nutritional and metabolic diseases complicating pregnancy, third trimester (principal); Z3A.39 39 weeks gestation of pregnancy
CPT/HCPCS: 59025; 59050; G0378; G0379

== ENCOUNTER 2020-06-14 18:19 | Inpatient (IN) | payer OTHER, SELFPAY ==
[2020-06-14 19:22] LABS: COVID19 -Nasal RAPID Negative (Negative)
[2020-06-14 19:24] VITALS: BP 112/72
[2020-06-14 19:29] LABS: Add Manual Diff / Slide Review NO; Basophils Absolute Auto 100 /uL (0-100); Basophils Percent Auto 0.9 % (0-2); Eosinophils Absolute Auto 0 /uL (0-450); Eosinophils Percent Auto 0.6 % (2-4); Hematocrit 37.1 % (36-46); Lymphocytes Absolute Auto 1200 /uL (1100-4500); Lymphocytes Percent Auto 15.5 % (25-40); Mean Corpuscular Hemoglobin 31.8 PG (26-34); Mean Corpuscular Volume 91.1 fL (80-100); Monocytes Absolute Auto 400 /uL (0-900); Monocytes Percent Auto 4.9 % (3-14); Neutrophils Absolute Auto 6200 /uL (1500-7000); Neutrophils Percent Auto 78.1 % (50-75); Platelet Count 192 X10^3/uL (150-400); Red Blood Cell Count 4.07 X10^6/uL (4.0-5.2); Red Cell Distribution Width 13.1 % (11.6-14.8); White Blood Cell Count 7.9 X10^3/uL (4.5-11.0)
[2020-06-14] MEDS: miSOPROStoL 25 MCG TABLET VAG (19:47)
[2020-06-14] MEDS: ZOLPIDEM 5 MG TABLET PO (23:45)
--- NOTE | 2020-06-15 07:11 | PM.OBHP.1 ---
OB HPI Date/Time Date of admission: 06/14/20 Date Patient Seen: 06/15/20 Time Patient Seen: 07:00 History of Present Condition Chief complaint: : 1 Para: 0 Estimated Date of Delivery: 06/15/20 Estimated Gestational Age (weeks): 40 Narrative: Graciela Canas is a 25 year old female at 40 weeks gestation here for elective induction due to patient moving 06/30/20 with the [place]. Patient transferred care at 24 weeks from [facility]. complicated by well-controlled hypothyroidism and HIV in her . She was tested each trimester this for HIV and negative and saw [facility] as well. has had an undetectable viral load for 6 years. She was treated several times for BV this . Lastly her pap at the beginning of the was ASCUS with +HPV. Indications Indication for induction OB: other (Elective due to moving) History of Present care: good care, initiated at week # (10), number of visits (12) and pounds weight gain (55) Dating criteria: LMP confirmed by 1st trimester US Ultrasounds: normal mid trimester US Obstetrical complications: none Medical complications: none Preadmission Labs Blood type: AB (+) positive -: Antibody screen: negative, GBS status: positive, HBsAG: negative, HIV: negative and RPR/VDLR: negative -: Chlamydia screen: not detected and Gonorrhea screen: not detected -: Rubella: equivocal HCT: 37.1 HCAB: negative PAP: Abnormal (ASCUS +HPV) Urine: Negative 1 hr GTT: 87 Evaluation Evaluation Baseline heart rate: 120 Variability: Average (6-10) monitor accelerations: Present monitor decelerations: Absent Contraction Frequency (minutes): 3 Uterine Contraction Intensity: Mild Category of Tracing: Reactive Cervical dilation (cm): 1 Cervical effacement (%): 70 station: -2 Laboratory results: Laboratory Tests 06/14/20 06/14/20 06/14/20 18:35 19:10 19:10 WBC 7.9 RBC 4.07 Hgb 13.0 Hct 37.1 MCV 91.1 MCH 31.8 MCHC 35.0 RDW 13.1 Plt Count 192 Neut % (Auto) 78.1 H Lymph % (Auto) 15.5 L [place] % (Auto) 4.9 Eos % (Auto) 0.6 L Baso % (Auto) 0.9 Neut # (Auto) 6200 Lymph # (Auto) 1200 [place] # (Auto) 400 Eos # (Auto) 0 Baso # (Auto) 100 SARS-CoV-2 (PCR) Negative Blood Type AB Positive Antibody Screen Negative PFS Medical History Abnormal Pap smear of cervix (~2019) Allergies (~2014) Bacterial vaginosis Hypothyroidism (~2018) Yeast infection involving the vagina and surrounding area Surgical History Anesthesia [place] teeth removed (~2018) Family History Father History of amputation Neuropathy Diabetes mellitus Mother Hypothyroidism Diabetes mellitus Hypertension Sister Hypothyroidism Grandfather Congestive heart failure Diabetes mellitus History of heart disease Hyperlipidemia Hypertension Grandmother Arthritis Grandmother No problems noted. Grandfather No problems noted. Social History marital status: number of children: 0 household members: spouse lives independently: Yes caregiver/support person: No housing: apartment education level: high school occupational status: employed ([employer] in [place], starts at 11am.) current occupational exposures/hazards: Yes Smoking Status: Never smoker second hand exposure: No Type(s) of exercise: walking and weight lifting (Normally competitive weightlifter; Previous provider recommended avoiding exercises with too much core pressure.) frequency: 5-6 times per week Meds Home Medications and Allergies Home Medications Medication Instructions Recorded Confirmed Type cetirizine 10 mg tablet 10 mg PO DAILY 02/16/20 06/14/20 History levothyroxine 25 mcg capsule 25 mcg PO DAILY 02/16/20 06/14/20 History prenat.vits,byron,sun-ceoj-wwbyz 1 tab PO DAILY 02/16/20 06/14/20 History Allergies Allergy/AdvReac Type Severity Reaction Status Date / Time amoxicillin Allergy Intermediate Rash Verified 06/09/20 19:17 Sulfa (Sulfonamide Allergy Intermediate Rash Verified 06/09/20 19:17 Antibiotics) Review of Systems Review of Systems Narrative: Denies fevers, chills, headaches, nausea, vomiting, abdominal pain ROS: Yes All systems reviewed with the patient and are negative except as otherwise documented Exam Vital Signs (past 8 hours): T 36.4 BP 105/62 P 97 Const General: healthy appearing and comfortable [facility] Head: normal to inspection Ears: hearing grossly normal bilaterally Nose: external nose normal Face and sinus: normal facial exam Mouth: oral mucosae normal Eyes General: appearance normal, both eyes and all related structures Neck Neck: normal visual inspection Resp Effort & Inspection: normal respiratory effort Cardio Rate: regular rate GI Other: Gravid External Female Exam: normal external appearance Manual OB Exam: dilated 1, effaced (70) and station -2 Presentation: vertex Estimated Weight (lbs): 7 Back/Spine/Pelvis Back: normal to inspection Skin General: no rashes or lesions noted Extrem General: normal to inspection and no pedal edema Objective Labs Result Diagrams: 06/14/20 19:10 Labs: Laboratory Results - last 24 hr 06/14/20 06/14/20 06/14/20 18:35 19:10 19:10 WBC 7.9 RBC 4.07 Hgb 13.0 Hct 37.1 MCV 91.1 MCH 31.8 MCHC 35.0 RDW 13.1 Plt Count 192 Neut % (Auto) 78.1 H Lymph % (Auto) 15.5 L [place] % (Auto) 4.9 Eos % (Auto) 0.6 L Baso % (Auto) 0.9 Neut # (Auto) 6200 Lymph # (Auto) 1200 [place] # (Auto) 400 Eos # (Auto) 0 Baso # (Auto) 100 SARS-CoV-2 (PCR) Negative Blood Type AB Positive Antibody Screen Negative Assessment and Plan Assessment and Plan Assessment and Plan narrative: Patient is a 25 year old at 40 weeks here for elective induction due to patient moving at the end of the month. She has well-controlled hypothyroidism and was seen by MFM due to HIV in her . Patient was negative for HIV each trimester. Her has had an undetectable viral load for six years. Induction attempted last week but no significant change after Cervildil and pitocin. She returned last night for Cytotec but only received one dose due to contractions. Overnight there were periods of minimal variability which returned to moderate at times. Discussed options this morning given frequent contractions but no cervical change after one dose of Cytotec. Recommended medrano bulb placement for further cervical ripening. Risks and benefits of medrano bulb reviewed with patient and her . 18 [place] Medrano bulb placed manually and inflated with 50 ml of saline. Catheter taped to patient's leg with gentle traction. Patient tolerated procedure well. Will start low dose pitocin in addition to medrano bulb. Remove medrano bulb at 12 hours unless ROM or falls out before then. Needs GBS prophylaxis. Given amoxicillin allergy, will give cefazolin which patient has tolerated in the past.
[2020-06-15] MEDS: LACTATED RINGERS 1,000 ML 100 ML IV ×3 (07:37→16:04)
[2020-06-15] MEDS: OXYTOCIN PREMIX 30 UNIT/500 ML PLAST..BAG IV (07:37)
[2020-06-15] MEDS: CEFAZOLIN 1 GM/50 ML FROZ.PIGGY IV ×3 (08:34→16:30)
--- NOTE | 2020-06-15 11:56 | PM.OBPNLAB ---
Date/Time Date Patient Seen: 06/15/20 Time Patient Seen: 11:56 Pain Control Pain control: tolerating well Comments: Feeling contractions but able to cope. Pelvic Exam Dilation (cm): 4 Effacement (%): 80 station: -2 Amniotic membrane status: Intact (clear) Contractions Pitocin rate (mU/min): 1 Contraction frequency (min): 3 Contraction pattern: Regular Contraction intensity: Mild Status status: Category ll Heart Rate Baseline: 125 Monitor Accelerations: Absent Monitor Decelerations: Absent Monitor Variability: Minimal Assessment and Plan Assessment: induction ongoing Plan: continuous present management Comments: 25 year old at 40 weeks here for induction. Daniel bulb fell out at 10:35 AM. We continue to have periods of minimal variability which improve with fluid bolus, juice and repositioning. Variability improved after AROM with accelerations as well. Discussed with patient and that we will continue to manage expectantly but if we have a non-reactive tracing that does not respond to resuscitation measures, will need to proceed to . Patient and her understand. Will continue to titrate pitocin as able.
--- NOTE | 2020-06-15 13:40 | PM.AN.REGBLK ---
Regional Block Pre-procedure Procedure: Continuous Lumbar Epidural for L&D Attending OB provider: Elsy Mcmahon PM/ROS narrative: term labor, no complications Hx: No personal or family history of anesthesia problems. ASA Class: II Labs: Hct 37.1 % (36-46) 06/14/20 19:10 Plt Count 192 X10^3/uL (150-400) 06/14/20 19:10 Medications: Current Medications Generic Name Dose Route Start Last Admin Trade Name Freq PRN Reason Stop Dose Admin Acetaminophen 650 mg 06/14/20 18:24 Acetaminophen 325 Mg Tablet PO Q4HR PRN Fever/Mild Pain (1-3) Calcium Carbonate 1,000 mg 06/14/20 18:24 Calcium Carbonate 500 Mg Tab PO Q2H PRN Dyspepsia Diphenhydramine HCl 25 mg 06/15/20 08:14 Diphenhydramine 50 Mg/Ml Vial IV Q10M PRN Pruritis Lactated Ringer's 1,000 mls @ 100 mls/hr 06/14/20 18:30 06/15/20 11:22 Lactated Ringers IV 100 mls/hr CONT GORDON Administration Lactated Ringer's 1,000 mls @ 100 mls/hr 06/14/20 18:30 Lactated Ringers IV CONT GORDON Oxytocin/Lactated Ringer's 30 unit in 500 mls @ 3 mls/hr 06/14/20 18:30 06/15/20 07:37 Oxytocin Premix IV 1 milliunit/min TITRATE GORDON 1 mls/hr Administration Protocol 3 MILLIUNIT/MIN Cefazolin Sodium/Dextrose 1 gm in 50 mls @ 200 mls/hr 06/15/20 03:00 06/15/20 11:22 Ancef IV 200 mls/hr Q8H GORDON Administration FENT 2MCG/ML BUPIV 0.125% EPI 200 mcg in 100 mls @ 6 mls/hr 06/15/20 08:15 Fentanyl/Bupiv/Ns 2mcg/Ml - 0.125% EPIDURAL CONT GORDON Misoprostol 25 mcg 06/14/20 18:24 06/14/20 19:47 Misoprostol 25 Mcg Tablet VAG 25 mcg Q4HR PRN Administration Cervical Ripening Ondansetron HCl 4 mg 06/14/20 18:25 Ondansetron 4 Mg/2 Ml Inj IV Q4HR PRN Nausea And Vomiting Zolpidem Tartrate 5 mg 06/14/20 18:24 06/14/20 23:45 Zolpidem 5 Mg Tablet PO 5 mg BEDTIME PRN Administration Sleep Allergies: Allergies Allergy/AdvReac Type Severity Reaction Status Date / Time amoxicillin Allergy Intermediate Rash Verified 06/09/20 19:17 Sulfa (Sulfonamide Allergy Intermediate Rash Verified 06/09/20 19:17 Antibiotics) Procedure Insertion date: 06/15/20 Insertion time: 13:20 Prep/Local: betadine x3 Interspace: L3-4 Patient position: sitting Needle: 18 gauge CatchSquaretead (CSE: 27g Pencan through Hustead, clear CSF, 1mL 0.25% bupivacaine) Loss of resistance with: saline DEV at (cm): 5 Catheter placed at SKIN (cm): 10 Catheter in SPACE (cm): 5 Insertion: No CSF, No Blood, No Paresthesia with insertion, No Paresthesia with injection and No Test dose reaction Initial Medications TEST DOSE: 1.5% lidocaine with epinephrine 1:200k (mL): 3 BOLUS DOSE time: 13:30 BOLUS DOSE (mL): 3 BOLUS DOSE med: other (infusate) Infusion INFUSION: 0.125% bupivacaine and with fentanyl 2 mcg/mL Initial rate (mL/hr): 6 Subsequent interventions: 1700 50mcg fentanyl and 3mL 2% chloroprocaine for increased PCEA use, increased pressure sensation. 20mL 2% lidocaine in anticipation of CS. To OR 20:03. One sided block. Epidural replaced, CSE, L2-3, DEV 4cm with saline, 27g Pencan through Hustead. Clear CSF. 2.5mg bupivacaine. Catheter to 9cm, 5cm in space. Adequate block for CS, slightly high, to T2-3. Post-procedure Anesthesia time START: 13:13 Anesthesia time END: 20:03 Post-procedure Anesthesia Assessment: Yes CV function: HR/BP stable, Yes Resp function: RR/sat/airway adequate, Yes Post-op hydration adequate, Yes Pain control adequate, Yes Nausea & vomiting absent, Yes Mental status appropriate and No Anesthesia complications
--- NOTE | 2020-06-15 15:45 | PM.OBPNLAB ---
Date/Time Date Patient Seen: 06/15/20 Time Patient Seen: 15:35 Pain Control Pain control: tolerating well and epidural Comments: Comfortable with epidural Pelvic Exam Dilation (cm): 6 Effacement (%): 80 station: -2 Amniotic membrane status: Ruptured (clear) Contractions Pitocin rate (mU/min): 7 Contraction frequency (min): 3 Contraction pattern: Regular Status status: Category ll Heart Rate Baseline: 130 Monitor Accelerations: Present Monitor Decelerations: Absent Monitor Variability: Minimal Assessment and Plan Assessment: induction ongoing Plan: continuous present management Comments: Patient progressing on pitocin. Continues to have periods of minimal variability then recovers. Continue pitocin, start peanut ball rotation q30 min.
--- NOTE | 2020-06-15 17:50 | P.PNOB_ITS ---
Date/Time Date Patient Seen: 06/15/20 Time Patient Seen: 17:35 Pain Control Pain control: tolerating well and epidural Pelvic Exam Dilation (cm): 6 Effacement (%): 80 station: -2 Amniotic membrane status: Ruptured (clear) Comments: Due to difficulty consistently monitoring contractions and titrating pitocin, the decision was made to place an IUPC. Discussed risks and benefits with patient and who were in agreement with procedure. Contractions Pitocin rate (mU/min): 6 Contraction frequency (min): 3 Contraction pattern: Regular Status status: Category ll Heart Rate Baseline: 130 Monitor Accelerations: Present Monitor Decelerations: Late Monitor Variability: Moderate Assessment and Plan Assessment: induction ongoing Plan: continuous present management Comments: IUPC placed to titrate pitocin and consistently monitor contractions. There were four late decels after IUPC placement which resolved with position change, oxygen and decreasing pitocin. Will titrate pitocin as able and recheck cervix after 2 hours of adequate contractions. Patient aware of potential c- section for intolerance or lack of cervical change.
--- NOTE | 2020-06-15 19:41 | P.PNOB_ITS ---
Date/Time Date Patient Seen: 06/15/20 Time Patient Seen: 19:30 Pain Control Pain control: tolerating well and epidural Pelvic Exam Dilation (cm): 7 Effacement (%): 80 station: -2 Amniotic membrane status: Ruptured (clear) Contractions Pitocin rate (mU/min): 7 Contraction frequency (min): 3 Contraction pattern: Regular Contraction intensity: Mild Status status: Category ll Heart Rate Baseline: 130 Monitor Accelerations: Present Monitor Decelerations: Late Monitor Variability: Moderate Assessment and Plan Assessment: induction ongoing Plan: Comments: Patient with adequate contractions but without significant cervical change or descent of head over the last 3.5 hours. Also having periods of late decelerations which resolve with fluid bolus, oxygen and position change. Discussed primarily with patient and her for failure to progress in labor and intolerance of labor. Risks reviewed including bleeding, infection, injury to bowel or bladder. Will proceed with primary c- section. Patient would accept a blood transfusion if needed. Consent signed and placed in chart. 2 g Ancef prior to surgery.
--- NOTE | 2020-06-15 19:54 | PM.PREOP ---
Pre-operative Note COVID-19 COVID-19 status: Negative Result date/Date tested (Pos, Neg/Pending): 06/14/20 Interval Note History & Physical reviewed/Exam performed by Physician: Yes Changes to H&P: No
[2020-06-15] MEDS: CEFAZOLIN 2 GM/100 ML FROZ.PIGGY IV (20:13)
[2020-06-15] MEDS: ACETAMINOPHEN IV 1,000 MG/100 ML VIAL 400 MG IV (20:50)
--- NOTE | 2020-06-15 20:51 | SUR.OPER ---
live female at 2043 APGARS 02/10
[2020-06-15 21:29] VITALS: BP 105/50; PULSE 72; RESP 18; TEMP 36.9; O2SAT 100
[2020-06-15 21:34] VITALS: BP 116/67; PULSE 77; RESP 11; O2SAT 100
--- NOTE | 2020-06-15 21:35 | P.OP_ITS ---
Operative Date/Time/Diagnoses Date of procedure: 06/15/20 Time of procedure: 20:30 Pre-op diagnosis: Failure to progress in labor 40 weeks of Post-op diagnosis: same Procedure & Clinicians Procedure: Primary low-transverse section Same procedure as scheduled: Yes Indications: Failure to progress in labor Surgeon: Elsy Mcmahon Hide Spreader: Carolina Tang Anesthesia Type: Epidural Operative Notes Findings: Vigorous female , normal tubes and ovaries Closure Type: primary Specimen(s): none sent Applied: catheter Estimated Blood Loss (mL): 300 Blood products transfused: none Procedure in detail: The patient was taken to the operating room where epidural anesthesia was found to be inadequate. She was placed upright and epidural anesthesia administered a second time. She was then placed in the dorsal supine position with a leftward tilt. She was prepped and draped in the usual sterile fashion. A timeout was performed. After epidural analgesia was found to be adequate, a Pfannenstiel skin incision was made 2 fingerbreadths above the pubic symphysis and carried through to the underlying layer fascia. The fascia was nicked in the midline and the incision extended bilaterally with Jordan scissors. Dr. Mcmahon performed the incision on patient's left and Dr. Tang the incision on patient's right. The superior aspect of the fascial incision was grasped with a Guero clamps, elevated, and the underlying rectus muscles dissected off sharply and bluntly by both Dr. Tang and Dr. Mcmahon. Attention was then turned to the inferior aspect of this incision which in a similar fashion was grasped with a Guero clamps, elevated, and the underlying rectus muscles dissected off sharply and bluntly by both Dr. Tang and Dr. Mcmahon. The rectus muscles were in the midline. The peritoneum was identified, grasped between [address] Tang and Dr. Mcmahon, and entered sharply with the Metzenbaum scissors. This incision was extended superiorly and inferiorly with good visualization of the bladder. The bladder blade was inserted. The vesicouterine peritoneum was identified, grasped with the pickup, and entered sharply with the Metzenbaum scissors. This incision was extended bilaterally and the bladder flap was created digitally. The bladder blade was reinserted. The lower uterine segment was incised in a transverse fashion with the scalpel while Dr. Tang provided suction of the incision. Upon entering the amniotic sac there was a small amount clear amniotic fluid. The 's head was delivered while Dr. Tang applied fundal pressure. The remainder of the body delivered without difficulty. The cord was double clamped and cut. The was handed off to waiting RN and RT. The placenta was delivered manually. The uterus was cleared of all clots and debris. Dr. Tang provided retraction and held allis cramps on the uterus while the uterine incision was repaired with #1 chromic in a running interlocking fashion. A second layer of the same suture was used for an imbricating layer. Hemostasis was achieved. The tubes and ovaries were examined and were found to be normal. The gutters were cleared of all clots and debris. The bladder flap was reapproximated using 2-0 Vicryl in a running fashion with Dr. Tang providing retraction for visualization. The parietal peritoneum was closed using 2-0 Vicryl in a running fashion again with Dr. Tang providing retraction for visualization. The fascia was reapproximated using 1 Vicryl in a running fashion, Dr Tang closed the patient's right side of the incision and Dr. Mcmahon closed the left. Subcutaneous layer was copiously irrigated with warm normal saline. 3 simple interrupted sutures of 3-0 Vicryl were placed to reapproximate the subcutaneous layer. The skin was closed with 4-0 undyed Vicryl in a subcuticular fashion. Steri-Strips were placed. An Aquacel dressing was placed. The uterus was expressed of a small amount of old blood. Sponge, lap, and instrument counts were correct. The patient tolerated the procedure well, and was taken to PACU in stable condition. Post-operative Condition: stable Disposition: PACU Plan for aftercare: Routine postop care
[2020-06-15 21:39] VITALS: BP 122/64; PULSE 67; RESP 13; O2SAT 100
[2020-06-15 21:55] VITALS: BP 104/62; PULSE 73; RESP 13; O2SAT 100
[2020-06-15] MEDS: OXYCODONE IR 5 MG TABLET PO (23:37)
[2020-06-16] MEDS: KETOROLAC 30 MG/ML VIAL IV ×3 (03:37→15:57)
[2020-06-16] MEDS: OXYCODONE IR 5 MG TABLET PO (03:39)
[2020-06-16] MEDS: LANOLIN OINT 7 GM 1 APPLIC TOP (03:39)
[2020-06-16] MEDS: ONDANSETRON 4 MG/2 ML INJ IV (07:48)
[2020-06-16] MEDS: ACETAMINOPHEN 325 MG TABLET 650 MG PO ×3 (08:32→23:20)
[2020-06-16] MEDS: DOCUSATE 250 MG CAPSULE PO (08:33)
[2020-06-16] MEDS: OXYCODONE IR 5 MG TABLET 10 MG PO ×4 (08:33→21:26)
[2020-06-16] MEDS: PRENATAL VIT,CALC/IRON/FOLIC 1 TABLET 1 TAB PO (08:33)
[2020-06-16 08:34] LABS: Hematocrit 30.1 % (36-46); Hemoglobin 10.3 g/dL (12.0-16.0)
--- NOTE | 2020-06-16 09:40 | PM.OBPN.1 ---
Subjective - OB Subjective Patient comments: incisional pain, tolerating diet and flatus present baby status: doing well and nursing well feeding status: exclusively breast feeding Date Patient Seen: 06/16/20 Time Patient Seen: 09:25 Interval history: Uneventful night but she has not slept yet. She has been having quite a bit of incisional pain relieved with 10 mg of oxycodone. Exam Vital Signs (past 8 hours): Oxygen Delivery Method Room Air T 98.8 BP 109/62 HR 78 RR 16 Narrative Exam Narrative: General: Awake and alert, no acute distress. HEENT: NCAT, EOMI, moist oral mucosa CV: Regular rate and rhythm, no murmurs, rubs or gallops Lungs: CTAB, no wheezes, rales, or rhonchi Abdomen: Aquacel dressing intact without drainage. Soft, nontender; bowel tones active; uterus firm 1 cm below umbilicus. Extremities: Warm, no edema bilaterally, 2+ pedal pulses bilaterally Objective Labs Result Diagrams: 06/16/20 08:04 Labs: Laboratory Results - last 24 hr 06/16/20 08:04 Hgb 10.3 L Hct 30.1 L Assessment & Plan Assessment and Plan (1) S/P : Status: Acute (2) 40 weeks gestation of : Status: Acute (3) Failure to progress in labor: Status: Acute Plan day: 1 plan OB: routine postop care Comments: Encouraged ambulation. going well. Time Spent With Patient Time: Total time spent is greater than 50% in coordination of care (as documented) at patient's floor/unit and/or counseling patient: Time with patient: less than 15 minutes
[2020-06-16] MEDS: IBUPROFEN 600 MG TABLET PO (21:26)
[2020-06-17] MEDS: OXYCODONE IR 5 MG TABLET PO ×3 (01:16→11:09)
[2020-06-17] MEDS: IBUPROFEN 600 MG TABLET PO ×2 (03:25→11:08)
[2020-06-17] MEDS: ACETAMINOPHEN 325 MG TABLET 650 MG PO ×2 (05:32→11:43)
[2020-06-17] MEDS: LEVOTHYROXINE 25 MCG TABLET PO (05:32)
--- NOTE | 2020-06-17 08:33 | P.DS_ITS ---
Discharge Providers Provider Date of admission: 06/14/20 18:19 Discharge Date: 06/17/20 Primary care physician: Elsy Mcmahon DO Consults: 06/15/20 21:43 Consult to Window Glazier Helper Routine Comment: Discharge provider: Elsy Mcmahon DO Summary Hospital Course Date Patient Seen: 06/17/20 Time Patient Seen: 07:45 Procedures: Primary low-transverse section Hospital Course: Patient is a 25-year-old after primary section on 06/15/20 for failure to progress in labor. Patient came in for elective induction due to upcoming move the . She received Cervidil for cervical ripening followed by Daniel bulb for continued ripening. She then received Pitocin per protocol and went on to receive an epidural with adequate pain control. heart tones were category 1 and 2 throughout labor due to period s of minimal variability which would improve with resuscitative measures. An IUPC was placed due to slow progression of labor as well as difficulty monitoring contractions externally. Patient was having adequate contractions but no significant cervical spinning frame changer several hours in combination with periods of distress. The decision was made to proceed with primary section for failure to progress in labor. Infant was found to be direct occiput posterior with a nuchal cord at the time of delivery. Apgars were 9 and 9 in infant did well after delivery. Immediate postop course uncomplicated. patient did well. She was ambulating, voiding and passing flatus as well as tolerating a diet. Pain controlled with ibuprofen and oxycodone. Vaginal bleeding was light to moderate. Breast-feeding was going very well. Advised patient to call for fevers, severe pain or bleeding through more than a pad an hour. She will follow-up in clinic on 06/21/20 for Aquacel dressing removal and wound check. Prescription sent to her pharmacy for oxycodone, ibuprofen and docusate. Peripartum Data Infant Delivery Method: Section complications: none 1: Gender: Female Disposition of : home Discharge Diagnosis (1) S/P : Status: Acute (2) 40 weeks gestation of : Status: Acute (3) Failure to progress in labor: Status: Acute Status at Discharge Functional status at discharge: independent ambulation Overall status at discharge: patient is progressing back to baseline Time Spent with Patient Time attestation: Total time spent providing and/or coordinating discharge services: Time spent: Less than 30 minutes Objective Labs Result Diagrams: 06/16/20 08:04 Labs: Laboratory Results - last 24 hr 06/16/20 08:04 Hgb 10.3 L Hct 30.1 L Exam Vital Signs (past 8 hours): Oxygen Delivery Method Room Air Temperature 98.0? blood pressure 128/54 respirations 16 heart rate 88 Narrative Exam Narrative: General: Awake and alert, no acute distress. HEENT: NCAT, EOMI, moist oral mucosa CV: Regular rate and rhythm, no murmurs, rubs or gallops Lungs: CTAB, no wheezes, rales, or rhonchi Abdomen: Aquacel dressing intact without drainage. Soft, nontender; bowel tones active; uterus firm 1 cm below umbilicus. Extremities: Warm, no edema bilaterally Discharge Plan Discharge Plan Patient Disposition: Home Discharge orders & Medications Prescriptions: New ibuprofen 600 mg Tablet 600 mg PO Q6HR PRN (Reason: Fever/Mild Pain (1-3)) Qty: 30 RF: 0 docusate sodium 250 mg Capsule 250 mg PO DAILY Qty: 30 RF: 0 oxycodone 5 mg Tablet 5 mg PO Q4HR PRN (Reason: Pain, Moderate (4-6)) Qty: 20 RF: 0 Continued levothyroxine 25 mcg capsule 25 mcg PO DAILY RF: 0 cetirizine [Zyrtec] 10 mg tablet 10 mg PO DAILY RF: 0 prenat.vits,byron,[id number] Tablet 1 tab PO DAILY RF: 0 Follow up/Referrals: Elsy Mcmahon DO [Primary Care Provider] - 3-5 Days (Pt has an appointment on 06/21/2020@ [address] Mcmahon for incision check) Diet/Activity/Treatments Diet: Diet as Tolerated Skin/Wound/Dressing Care Report to your healthcare provider any signs of infection, such as:: chills, fever, night sweats, increased pain, unusual drainage and unusual redness Visit Report/Discharge Packet Stand Alone Forms: Discharge: Care Visit Report Forms: Patient Portal/API, Stroke Signs & Symptoms Discharge Data Primary Care Provider: Elsy Mcmahon
[2020-06-17 09:56] VITALS: BP 127/60; PULSE 75; RESP 17; TEMP 36.4
[2020-06-17] MEDS: DOCUSATE 250 MG CAPSULE PO (11:08)
[2020-06-17 11:09] VITALS: TEMP 36.4
[2020-06-17 11:43] VITALS: TEMP 36.4
== END 2020-06-17 15:00 | disposition home or self-care (01) | DRG 787 ==
PROVIDERS: Admitting Provider Family Medicine; PCP Family Medicine; Referring Provider Family Medicine; Visit Provider Family Medicine
PROC: 10D00Z1 Extraction of Products of Conception, Low, Open Approach (ICD-10-PCS; CPT 59514; principal; 2020-06-15 19:50)
DX: O99.824 Streptococcus B carrier state complicating childbirth (principal); O98.52 Other viral diseases complicating childbirth; Z3A.40 40 weeks gestation of pregnancy; Z37.0 Single live birth; O99.284 Endocrine, nutritional and metabolic diseases complicating childbirth; R87.820 Cervical low risk human papillomavirus (HPV) DNA test positive; O64.8XX0 Obstructed labor due to other malposition and malpresentation, not applicable or unspecified; O69.81X0 Labor and delivery complicated by cord around neck, without compression, not applicable or unspecified; Z20.822 Contact with and (suspected) exposure to COVID-19
CPT/HCPCS: 01967; 01968; 36415; 59050; 59200; 59514; 59515; 85014; 85018; 85025; 86850; 86900; 86901; 87635; C9803; G0379; J0131; J0690; J1885; J2274; J2405; J2590; J2704; J3010

== ENCOUNTER → 2020-07-22 14:16 | Outpatient (CLI) | payer OTHER, SELFPAY | PROVIDERS: PCP Family Medicine; Referring Provider Family Medicine; Visit Provider Family Medicine | DX: E03.9 Hypothyroidism, unspecified (principal) | CPT/HCPCS: 36415; 84439; 84443 ==